=== PATIENT | female | born 1975 | race Caucasian/White ===

== ENCOUNTER 2021-08-03 10:43 | Emergency (ER) | payer OTHER ==
[~2021-08-03 10:43] MED LIST: AUGMENTIN 875-1 EACH PO
[2021-08-03] MEDS ORDERED: OFLOXACIN5 M1 EARLF (13:24)
== END 2021-08-03 13:41 | disposition home or self-care (01) ==
LOC: FER 10:43
DX: R51.9 Headache, unspecified (principal); H60.92 Unspecified otitis externa, left ear; Z88.1 Allergy status to other antibiotic agents; Z88.6 Allergy status to analgesic agent
CPT/HCPCS: 70450